=== PATIENT | female | born 1955 | race African-American/Black ===

== ENCOUNTER 2017-09-11 09:42 | Observation (INO) | payer OTHER ==
[~2017-09-11] VITALS: Ht 170.2 cm; Wt 85.4 kg
[~2017-09-11 09:42] MED LIST: AMOX500T PO; ASPI325T PO; FISH1000 PO; GLUC500C56 PO; HYDR-2768 PO; LOTE20TA PO; TAB-TAB PO
[2017-09-11 09:50] VITALS: BP 95/63; PULSE 96; RESP 18; TEMP 98.9; O2SAT 97
[2017-09-11 09:54] VITALS: BP 95/63; PULSE 96; RESP 18; TEMP 98.9; O2SAT 97
[2017-09-11] MEDS ORDERED: NAPR500T2 PO (10:12)
[2017-09-11] MEDS ORDERED: HYDR25TA5 PO (10:12)
[2017-09-11] MEDS ORDERED: LOTE40TA PO (10:12)
[2017-09-11] MEDS ORDERED: SODIUM CHLOR 0.9% 1000 ML INJ 1,000 ML IV ONE (10:15)
[2017-09-11] MEDS ORDERED: SULF1TAB23 PO (10:17)
--- NOTE | 2017-09-11 10:29 | PD ---
HPI Chief Complaint: GI Complaint Time Seen by Provider: 10:03 Travel History International Travel<30 days: No Contact w/Intl Traveler<30days: No Traveled to known affect area: No History of Present Illness HPI This is a 62-year-old female who presents to the emergency department with 5 days of fatigue and weakness, constant, moderate severity, worse in the afternoons, associated with loose stools. She says she had 4 episodes of diarrhea today. She denies any fevers or chills. She says the symptoms have been present ever since she started taking Bactrim 5 days ago for a wound on her left leg. She says the wound is improved significantly but her symptoms have been worsening. She last took the Bactrim yesterday morning. PFSH Past Medical History Cancer: No Diabetes: No Glaucoma: No Hepatitis: No Hiatal Hernia: No Hypertension: Yes Thyroid Disease: No Tetanus Vaccination: > 5 Years ?: Not Past Surgical History Pacemaker: No Other Surgery: No Social History Alcohol Use: Yes (OCC) Tobacco Use: Yes (1/2 PK DAILY) Substance Use: No Allergies-Medications (Allergen,Severity, Reaction): Coded Allergies: No Known Allergies (Verified Allergy, Unknown, 09/11/17) Reported Meds & Prescriptions Reported Meds & Active Scripts Active Reported Sulfamethoxazole-Trimethoprim 800-160 Mg Tab 1 Tab PO BID Naproxen 500 Mg Tab 500 Mg PO Lotensin (Benazepril HCl) 40 Mg Tab 40 Mg PO DAILY Hydrochlorothiazide 25 Mg Tab 25 Mg PO DAILY Review of Systems Except as stated in HPI: all other systems reviewed are Neg Physical Exam Narrative GENERAL:Well appearing, no acute distress SKIN: Focused skin assessment warm and dry. HEAD: Atraumatic. Normocephalic. EYES: Pupils equal and round. No injection or drainage. ENT: Moist mucous membranes NECK: Trachea midline. CARDIOVASCULAR: Regular rate and rhythm. No murmur appreciated. RESPIRATORY: Clear to auscultation. Breath sounds equal bilaterally. GASTROINTESTINAL: Abdomen soft, non-tender, nondistended. MUSCULOSKELETAL: No obvious deformities. NEUROLOGICAL: Awake and alert. No obvious cranial nerve deficits. Moving all extremities. PSYCHIATRIC: Appropriate mood and affect; insight and judgment normal. Data Data Last Documented VS Vital Signs Date Time Temp Pulse Resp B/P (MAP) Pulse Ox O2 Delivery O2 Flow Rate FiO2 09/11/17 11:52 79 16 102/70 (81) 100 Room Air 09/11/17 09:54 98.9 Orders Orders Complete Blood Count With Diff (09/11/17 10:14) Comprehensive Metabolic Panel (09/11/17 10:14) ^ Insert Iv (09/11/17 10:14) Sodium Chlor 0.9% 1000 Ml Inj (Ns 1000 M (09/11/17 10:15) Urinalysis - C+S If Indicated (09/11/17 11:33) Urine Culture (09/11/17 11:45) Admit Order (Ed Use Only) (09/11/17 12:55) Labs Laboratory Tests Test 09/11/17 10:35 09/11/17 11:45 White Blood Count 3.0 TH/MM3 Red Blood Count 5.55 MIL/MM3 Hemoglobin 16.2 GM/DL Hematocrit 48.7 % Mean Corpuscular Volume 87.7 FL Mean Corpuscular Hemoglobin 29.2 PG Mean Corpuscular Hemoglobin Concent 33.3 % Red Cell Distribution Width 14.0 % Platelet Count 178 TH/MM3 Mean Platelet Volume 8.8 FL CBC Comment AUTO DIFF Differential Total Cells Counted 100 Neutrophils % (Manual) 34 % Band Neutrophils % 2 % Lymphocytes % 33 % Monocytes % 23 % Eosinophils % 7 % Basophils % 1 % Neutrophils # (Manual) 1.1 TH/MM3 Differential Comment FINAL DIFF MANUAL Platelet Estimate NORMAL Platelet Morphology Comment NORMAL Red Cell Morphology Comment NORMAL Blood Urea Nitrogen 20 MG/DL Creatinine 2.10 MG/DL Random Glucose 107 MG/DL Total Protein 8.2 GM/DL Albumin 3.8 GM/DL Calcium Level 8.8 MG/DL Alkaline Phosphatase 74 U/L Aspartate Amino Transf (AST/SGOT) 29 U/L Alanine Aminotransferase (ALT/SGPT) 31 U/L Total Bilirubin 0.5 MG/DL Sodium Level 134 MEQ/L Potassium Level 3.8 MEQ/L Chloride Level 101 MEQ/L Carbon Dioxide Level 22.1 MEQ/L Anion Gap 11 MEQ/L Estimat Glomerular Filtration Rate 29 ML/MIN Urine Color YELLOW Urine Turbidity CLEAR Urine pH 6.0 Urine Specific [place] 1.013 Urine Protein 30 mg/dL Urine Glucose (UA) NEG mg/dL Urine Ketones NEG mg/dL Urine Occult Blood SMALL Urine Nitrite NEG Urine Bilirubin NEG Urine Leukocyte Esterase NEG Urine RBC 0-3 /hpf Urine WBC 6-8 /hpf Urine Squamous Epithelial Cells 0-5 /hpf Urine Bacteria RARE /hpf Urine Hyaline Casts 25-49 /lpf Microscopic Urinalysis Comment CULTURE INDICATED MDM Medical Decision Making Medical Screen Exam Complete: Yes Emergency Medical Condition: Yes Medical Record Reviewed: Yes (I spoke to Dr. Guevara the patient's primary care physician who says that 4 months ago her GFR was 98 on routine blood work) Interpretation(s) Afebrile, mild tachycardia, normotensive Leukopenia 23% monocytes Creatinine is 2.1 GFR is 29 Urinalysis demonstrates hyalin casts Differential Diagnosis Adverse drug reaction, dehydration, electrolyte abnormality, C. difficile colitis, viral syndrome Narrative Course This is a 62-year-old female who presents to the emergency department with malaise and diarrhea in the setting of recent initiation of Bactrim for cellulitis area and her cellulitis on her leg has resolved area on exam she is well-appearing. Labs demonstrated GFR of 29 which is significantly reduced compared to her GFR of 98 for months ago at her primary care office. She also has leukopenia with some monocytic predominance suggestive of an underlying viral infection. She is given a liter of IV fluid. She'll be placed in observation for continued hydration and monitoring of renal function. Physician Communication Physician Communication Discussed with Dr. Cowart and Dr. gee Diagnosis Primary Impression: Renal failure Qualified Codes: N19 - Unspecified kidney failure Admitting Information Admitting Physician Requests: Observation Guerline Fu MD Sep 11, 2017 10:29
[2017-09-11 11:06] LABS: HEMATOCRIT 48.7 % (35.0-46.0); HEMOGLOBIN 16.2 GM/DL (11.6-15.3); MEAN CELL VOLUME 87.7 FL (80.0-100.0); MEAN CORPUSCULAR HEMOGLOBIN 29.2 PG (27.0-34.0); MEAN CORPUSCULAR HGB CONC 33.3 % (32.0-36.0); MEAN PLATELET VOLUME 8.8 FL (7.0-11.0); PLATELET COUNT 178 TH/MM3 (150-450); RED BLOOD COUNT 5.55 MIL/MM3 (4.00-5.30)
[2017-09-11 11:11] LABS: CHLORIDE 101 MEQ/L (98-107); SODIUM (NA) 134 MEQ/L (136-145)
[2017-09-11 11:15] LABS: CALCIUM 8.8 MG/DL (8.5-10.1)
[2017-09-11 11:16] LABS: ALBUMIN 3.8 GM/DL (3.4-5.0); BICARBONATE 22.1 MEQ/L (21.0-32.0); BLOOD UREA NITROGEN 20 MG/DL (7-18); GLUCOSE,RANDOM 107 MG/DL (74-106)
[2017-09-11 11:19] LABS: ALT (GPT) 31 U/L (10-53); AST (GOT) 29 U/L (15-37); GLOMERULAR FILTRATION RATE 29 ML/MIN (>89)
[2017-09-11 11:20] LABS: TOTAL BILIRUBIN ADULT 0.5 MG/DL (0.2-1.0); TOTAL PROTEIN 8.2 GM/DL (6.4-8.2)
[2017-09-11 11:22] LABS: ALKALINE PHOSPHATASE 74 U/L (45-117)
[2017-09-11 11:52] VITALS: BP 102/70; PULSE 79; RESP 16; O2SAT 100
[2017-09-11 12:00] LABS: BILIRUBIN, URINE NEG (NEG); BLOOD, URINE SMALL (NEG); GLUCOSE,URINE NEG (NEG); KETONE, URINE NEG (NEG); NITRITE,URINE NEG (NEG); URINE LEUKOCYTE ESTERASE NEG (NEG)
[2017-09-11 12:09] LABS: URINE COLOR YELLOW (YELLW/STRAW)
[2017-09-11 12:10] LABS: BACTERIA, URINE RARE /hpf; RBC, URINE 0-3 /hpf (0-3); SQUAMOUS EPITHELIAL CELL URINE 0-5 /hpf (0-5)
[2017-09-11 12:10] LABS: BANDS 2 % (0-6); BASOPHILS 1 % (0-2); LYMPHOCYTES 33 % (9-44); MONOCYTES 23 % (0-8); NEUTROPHIL # MANUAL DIFF 1.1 TH/MM3 (1.8-7.7); POLYS (SEG NEUTROPHILS) 34 % (16-70)
[2017-09-11] MEDS: SODIUM CHLOR 0.9% 1000 ML INJ 1,000 ML IV SCH ×2 (13:30→22:54)
[2017-09-11 13:49] VITALS: BP 108/72; PULSE 78; RESP 16; O2SAT 100
--- NOTE | 2017-09-11 15:15 | MH ---
cc: NERISSA SMITH M.D. DATE OF ADMISSION: 09/11/2017 ADMISSION DIAGNOSIS 1. Probable mild dehydration. 2. Mild diarrhea, likely secondary to antibiotic use. 3. Recent treatment for 5 days for slight cellulitis of the left lower leg. 4. Hypertension. 5. History of colon polyps. PERTINENT HISTORY This is a 62-year-old black female who presented to the emergency room with 5 day history of fatigue, weakness. She was seen at [facility] on 09/06 for some slight redness of the posterior aspect of the calf region over her left leg. She was diagnosed with cellulitis and put on Bactrim which she had been taking for twice a day. She developed some loose diarrhea over the last few days, not more than three to five times a day, no mucus or blood. No nausea, vomiting. She has been on a diuretic for hypertension as well. She also had some intermittent chills and felt body aches. She states she would feel warm at times. She states the redness on her leg is much, much better and she has no pain there. In the ER her creatinine was elevated at 2.1 and BUN 20. Her creatinine is up from what she usually is, which is normal according to ER physician's discussion with Dr. Guevara. She has no headache or sore throat or runny nose, no cough. She is being admitted for IV fluid therapy. PAST MEDICAL HISTORY 1. She is under treatment for hypertension. 2. She has had a couple polyps removed from the colon on 03/16/2016. 3. She has never been diagnosed with a heart attack, angina, CHF. 4. Sounds like she had a cardiac cath several years ago that was negative. 5. She denies any liver disease, prior kidney disease, no diabetes, stroke, thyroid disease, cancer, no peptic ulcer disease. PAST SURGICAL HISTORY 1. Arthroscopy of the left knee that was cleaned out in the past. 2. She had a colonoscopy 03/16/2016 with a couple polyps. 3. She had a cardiac cath in the past. ALLERGIES None. MEDICATIONS She takes: 1. Benazepril 40 mg one a day. 2. Hydrochlorothiazide 25 mg a day. 3. She takes K tabs 10 mEq one a day. 4. She has Naproxen at home 500 mg but she does not use it regularly. 5. She was on Bactrim DS one twice a day which she took her last dose yesterday. FAMILY HISTORY Her mother at 82, she had coronary artery bypass, hypertension, hyperlipidemia. Father at 77, had hypertension, diabetes and high cholesterol and heart disease. SOCIAL HISTORY She is . She only occasionally uses alcohol. She has been a smoker. She has not had a cigarette in a few days now but has been generally smoking a half-a-pack a day, the most she ever smoked was a pack a day. She started smoking at 25 but did not smoke during her pregnancies and had some other periods. She thinks she smoked around 25 years all together. REVIEW OF SYSTEMS GENERAL: Has had some occasional chills, felt warm at times, decreased appetite and felt generalized weakness. HEENT: No runny nose, sore throat. No visual complaints or hearing complaints. CARDIOVASCULAR: No chest pain, orthopnea, PND. PULMONARY: No cough, hemoptysis, wheezing. GI: Has had loose stools, three to five times a day but no blood or mucus. No abdominal pain, no vomiting. : No dysuria, urgency. She has not been urinating as much in the last few days. EXTREMITIES: She had the cellulitis on the left lower leg as mentioned that has much improved. No calf tenderness currently. PSYCHIATRIC: Without complaints. NEURO: Without complaints. PHYSICAL EXAMINATION GENERAL: Pleasant black female, alert and oriented. No distress. VITAL SIGNS: Her BP has been anywhere from 95/63 to 108/72, O2 sats have been good on room air, respiratory rate 16, pulse is in the 96 originally then 78. She has been afebrile. HEENT: TMs clear. Nose negative. Mouth without inflammation or lesion. NECK: Without bruit. No JVD. HEART: Regular rate and rhythm. No murmurs. LUNGS: Clear. ABDOMEN: Soft, nontender, no masses. EXTREMITIES: No edema. Pulses palpated in both feet. On the left posterior leg region there is only minimal redness now from where she had a supposed cellulitis, it is on the mid calf region and slightly above, no tenderness. No draining areas or wounds. NEURO: Oriented x3. Motor and sensory intact. LABORATORY DATA White count 3.0, hemoglobin 16.2, hematocrit 48.7, 23 monocytes, 33 lymphs, 34 neutrophils, 2 bands. Her CMP sodium 134, potassium 3.8, BUN and 20, creatinine is 2.1, GFR 29, glucose 107. AST, ALT, alkaline phosphatase, total protein, albumin normal. Chloride, CO2 were normal. Urinalysis showed 6-8 WBCs, rare urine bacteria. ASSESSMENT As noted. PLAN We are going to give her some IV fluids and hydrate her. I held her hydrochlorothiazide as it may have contributed along with the diarrhea to her increased BUN and creatinine. I am going to hold her Bactrim DS since her previously treated cellulitis seems to be much improved. Will hold her Lotensin for now since her blood pressure is still a little low. We certainly would not continue any naproxen at this time with her kidney function diminished. Will use SCDs and NAEL hose for DVT prophylaxis. We will allow her to get up and around since she feels like she is capable of doing that. Will try feeding her with a diet as tolerated with low sodium. Will recheck her electrolytes and BUN, creatinine, CBC tomorrow. She is admitted to observation for now. MD HENNY Hudson/ALICIA /2:18 PM /2:36 PM
[2017-09-11 16:00] VITALS: BP 112/65; PULSE 80; RESP 18; TEMP 98.3; O2SAT 99
[2017-09-11 20:00] VITALS: BP 105/70; PULSE 85; RESP 18; TEMP 99.4; O2SAT 96
[2017-09-12] VITALS: BP 108/65; PULSE 82; RESP 16; TEMP 98.5; O2SAT 97
[2017-09-12] MEDS: SODIUM CHLOR 0.9% 1000 ML INJ 1,000 ML IV SCH (05:40)
[2017-09-12 06:40] LABS: HEMATOCRIT 45.1 % (35.0-46.0); MEAN CELL VOLUME 90.2 FL (80.0-100.0); MEAN CORPUSCULAR HEMOGLOBIN 28.1 PG (27.0-34.0); MEAN CORPUSCULAR HGB CONC 31.1 % (32.0-36.0); MEAN PLATELET VOLUME 8.4 FL (7.0-11.0); PLATELET COUNT 155 TH/MM3 (150-450); WHITE BLOOD COUNT 2.6 TH/MM3 (4.0-11.0)
[2017-09-12 06:58] LABS: BICARBONATE 23.1 MEQ/L (21.0-32.0); CALCIUM 7.5 MG/DL (8.5-10.1); CREATININE 0.86 MG/DL (0.50-1.00)
[2017-09-12 07:45] LABS: LYMPHOCYTES 60 % (9-44); MONOCYTES 21 % (0-8); POLYS (SEG NEUTROPHILS) 11 % (16-70)
[2017-09-12 07:52] LABS: NEUTROPHIL # MANUAL DIFF 0.3 TH/MM3 (1.8-7.7)
[2017-09-12 08:00] VITALS: BP 115/76; PULSE 64; RESP 17; TEMP 97.8; O2SAT 99
--- NOTE | 2017-09-12 09:27 | HHI.PR ---
Subjective Remarks Her diarrhea has improved with more formed stool this morning. No nausea or vomiting. No cough, runny nose, urinary symptoms. No leg pain. No fever noted. She has just a slight back ache that is likely musculoskeletal. Objective Vitals Vital Signs Date Time Temp Pulse Resp B/P (MAP) Pulse Ox O2 Delivery O2 Flow Rate FiO2 09/12/17 00:00 98.5 82 16 108/65 (79) 97 09/11/17 20:00 99.4 85 18 105/70 (82) 96 09/11/17 16:00 98.3 80 18 112/65 (81) 99 09/11/17 14:20 09/11/17 13:49 78 16 108/72 (84) 100 Room Air 09/11/17 11:52 79 16 102/70 (81) 100 Room Air 09/11/17 09:54 98.9 96 18 95/63 (74) 97 09/11/17 09:50 98.9 96 18 95/63 (74) 97 Room Air Result Diagram: 09/12/17 0605 09/12/17 0605 Other Results Laboratory Tests Test 09/11/17 10:35 09/11/17 11:45 09/12/17 06:05 White Blood Count 3.0 TH/MM3 2.6 TH/MM3 Red Blood Count 5.55 MIL/MM3 5.00 MIL/MM3 Hemoglobin 16.2 GM/DL 14.0 GM/DL Hematocrit 48.7 % 45.1 % Mean Corpuscular Volume 87.7 FL 90.2 FL Mean Corpuscular Hemoglobin 29.2 PG 28.1 PG Mean Corpuscular Hemoglobin Concent 33.3 % 31.1 % Red Cell Distribution Width 14.0 % 14.0 % Platelet Count 178 TH/MM3 155 TH/MM3 Mean Platelet Volume 8.8 FL 8.4 FL CBC Comment AUTO DIFF AUTO DIFF Differential Total Cells Counted 100 100 Neutrophils % (Manual) 34 % 11 % Band Neutrophils % 2 % Lymphocytes % 33 % 60 % Monocytes % 23 % 21 % Eosinophils % 7 % 8 % Basophils % 1 % Neutrophils # (Manual) 1.1 TH/MM3 0.3 TH/MM3 Differential Comment FINAL DIFF MANUAL FINAL DIFF MANUAL Platelet Estimate NORMAL NORMAL Platelet Morphology Comment NORMAL NORMAL Red Cell Morphology Comment NORMAL Blood Urea Nitrogen 20 MG/DL 15 MG/DL Creatinine 2.10 MG/DL 0.86 MG/DL Random Glucose 107 MG/DL 88 MG/DL Total Protein 8.2 GM/DL Albumin 3.8 GM/DL Calcium Level 8.8 MG/DL 7.5 MG/DL Alkaline Phosphatase 74 U/L Aspartate Amino Transf (AST/SGOT) 29 U/L Alanine Aminotransferase (ALT/SGPT) 31 U/L Total Bilirubin 0.5 MG/DL Sodium Level 134 MEQ/L 140 MEQ/L Potassium Level 3.8 MEQ/L 3.9 MEQ/L Chloride Level 101 MEQ/L 108 MEQ/L Carbon Dioxide Level 22.1 MEQ/L 23.1 MEQ/L Anion Gap 11 MEQ/L 9 MEQ/L Estimat Glomerular Filtration Rate 29 ML/MIN 81 ML/MIN Urine Color YELLOW Urine Turbidity CLEAR Urine pH 6.0 Urine Specific [place] 1.013 Urine Protein 30 mg/dL Urine Glucose (UA) NEG mg/dL Urine Ketones NEG mg/dL Urine Occult Blood SMALL Urine Nitrite NEG Urine Bilirubin NEG Urine Leukocyte Esterase NEG Urine RBC 0-3 /hpf Urine WBC 6-8 /hpf Urine Squamous Epithelial Cells 0-5 /hpf Urine Bacteria RARE /hpf Urine Hyaline Casts 25-49 /lpf Microscopic Urinalysis Comment CULTURE INDICATED Imaging Vital Signs Date Time Temp Pulse Resp B/P (MAP) Pulse Ox O2 Delivery O2 Flow Rate FiO2 09/12/17 00:00 98.5 82 16 108/65 (79) 97 09/11/17 20:00 99.4 85 18 105/70 (82) 96 09/11/17 16:00 98.3 80 18 112/65 (81) 99 09/11/17 14:20 09/11/17 13:49 78 16 108/72 (84) 100 Room Air 09/11/17 11:52 79 16 102/70 (81) 100 Room Air 09/11/17 09:54 98.9 96 18 95/63 (74) 97 09/11/17 09:50 98.9 96 18 95/63 (74) 97 Room Air Objective Remarks Exam: Pleasant black female in no distress. HEENT: No scleral icterus, pupils equal, mouth negative Neck: No JVD Heart: RRR with no murmurs Lungs: Clear Abdomen: soft,nontender Extremities: No calf tenderness. Exam of the left lower leg reveals no further evidence of cellulitis that was recently treated and no tenderness of warmness of the left calf region. Neuro: Oriented, no focal neuro signs. A/P Assessment and Plan Assessment: --Dehydration--resolved with IV fluid therapy --Viral syndrome --Mild leukopenia/neutropenia likely secondary to a viral syndrome --Recent cellulitis of the left leg--resolved --Hypertension --Hx of colon polyps Plan: Discharge home today. I will order a repeat CBC and BMP to be done in one week. She will followup with her PCP (Dr Guevara) in one week. She can use Tylenol for her slight back ache. She was told to stop the HCTZ she was on at home and just take her Lotensin for hypertension. She was told not to take NSAID's also. She will follow a low sodium diet for her hypertension. Chris Bond MD Sep 12, 2017 09:27
== END 2017-09-12 11:06 | disposition home or self-care (01) ==
LOC: PHED 09:42 → PHEDA 12:56 → PH3A 14:41
PROVIDERS: ADMIT Family Medicine; ATTEND Family Medicine
DX: E86.0 Dehydration (principal); R19.7 Diarrhea, unspecified; R53.83 Other fatigue; R53.1 Weakness; B34.9 Viral infection, unspecified; R68.83 Chills (without fever); L03.116 Cellulitis of left lower limb; N19 Unspecified kidney failure; D72.819 Decreased white blood cell count, unspecified; I10 Essential (primary) hypertension; F17.210 Nicotine dependence, cigarettes, uncomplicated; Z79.899 Other long term (current) drug therapy; Z86.010 Personal history of colon polyps
CPT/HCPCS: 80048; 80053; 81001; 85007; 85027; 87086; 96360; 96361; 99285; G0378; J7030